=== PATIENT | female | born 1970 ===

== ENCOUNTER 2023-10-23 06:30 | Day surgery (SDC) | payer BC, SELFPAY ==
[2023-10-05 09:31] VITALS: BMI 33.8
[2023-10-05 10:31] LABS: Hematocrit 43.8 % (37.0-47.0); Hemoglobin 14.8 g/dL (12.0-16.0); Mean Corp Hgb Conc. 33.8 g/dL (33.0-37.0); Mean Corpuscular Hgb 29.3 pg (27.0-31.0); Mean Corpuscular Volume 86.7 fL (81.0-99.0); Mean Platelet Volume 10.5 fL (7.4-10.4); Platelet Count 311 10^3/uL (130-400); Red Blood Cell Count 5.05 10^6/uL (4.20-5.40); Red Cell Dist. Width 12.7 % (11.5-14.5); White Blood Cell Count 6.2 10^3/uL (4.8-10.8)
[2023-10-05 10:45] LABS: INR 0.98; PT 12.8 Sec (11.4-14.6)
[2023-10-05 10:46] LABS: APTT 25.9 Sec (23.4-35.0)
[2023-10-05 10:58] LABS: ALT (SGPT) 15 U/L (0-35); AST (SGOT) 17 U/L (14-36); Albumin 4.5 g/dl (3.5-5.0); Alkaline Phosphatase 66 U/L (38-126); Blood Urea Nitrogen 19 mg/dl (7-17); Calcium 10.4 mg/dl (8.4-10.2); Carbon Dioxide 27 mmol/L (22-30); Chloride 103 mmol/L (98-107); Estimated Creatinine Clearance 103 ml/min; Glucose 190 mg/dl (70-99); Potassium 4.3 mmol/L (3.5-5.1); Sodium 143 mmol/L (135-145); Total Bilirubin 0.6 mg/dl (0.2-1.3); Total Protein 7.5 g/dl (6.3-8.2); eGFR > 60.00
[2023-10-23] VITALS (14 sets, daily range): BP systolic 134–177; BP diastolic 79–114; BMI 33.8
[2023-10-23] MEDS: NORMOSOL-R/PLASMALYTE-A 1000 IV (08:57)
[2023-10-23] MEDS: NEURONTIN 300 MG PO (08:58)
[2023-10-23] MEDS: TYLENOL 1000 MG PO (08:58)
[2023-10-23] MEDS: HEPARIN 5000 UNITS SC (08:58)
[2023-10-23 08:59] LABS: Glucose - Point of Care 210 mg/dl (70-99)
[2023-10-23] MEDS: NOVOLOG vial 2 UNITS SC (09:41)
--- NOTE | 2023-10-23 11:08 | OR.RPT ---
Operative Report
Operative Report
DATE OF OPERATION: October 23, 2023
PREOPERATIVE DIAGNOSIS: Right Thyroid Nodule - E041
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
SURGEON: Jag Strong M.D.
OPERATION: Resection of right substernal goiter
ANESTHESIA: GET
ESTIMATED BLOOD LOSS: 3 cc
DRAINS: None
SPECIMEN: right total thyroid lobe and isthmus
FINDINGS: right substernal thyroid lobe
COMPLICATIONS:� None
PROCEDURE:
The patient was taken to the operating room and placed in the usual supine position. After adequate general endotracheal anesthesia was established, the patient�s neck was extended, prepped, and draped in the typical sterile fashion. A 5 cm
transcervical incision was made two fingerbreadths above the sternal notch. The skin incision was made with the #15 blade, which was taken through the skin into the subcutaneous tissue. The underlying platysma muscle was divided, and subplatysmal
flaps were created superiorly to the thyroid cartilage and inferiorly to the sternal notch. Strap muscles were identified and at the midline.
Attention was turned to the patient�s right thyroid lobe. The right thyroid lobe was mobilized medially. During this process, the right middle thyroid vein and inferior thyroid artery were dissected and ligated with Ligasure. There was a substernal
extension, which was delivered out of the mediastinum through the cervical incision. Next, the right superior pole was taken down by dissecting and transecting the superior pole vessels with a Ligasure. The right thyroid lobe was mobilized medially.
During this process, the right recurrent laryngeal nerve was identified and preserved throughout its entire course. The right superior parathyroid gland was identified and preserved. The right thyroid lobe with isthmus was resected off the trachea
and sent to the pathology department.
After obtaining adequate hemostasis, the strap muscle was approximated with #3-0 Vicryl in a running fashion, and platysma muscles were reapproximated with #3-0 Vicryl in an interrupted fashion, and the skin was approximated with #4-0 Monocryl in a
running subcuticular fashion. Steri-strips and sterile dressings were placed. The patient tolerated the procedure well. The final instrument, needle, and sponge counts were correct.
[2023-10-23 11:35] LABS: Glucose - Point of Care 179 mg/dl (70-99)
[2023-10-23] MEDS: DILAUDID 0.25 MG IV ×2 (12:02→12:16)
== END 2023-10-23 13:47 | disposition home or self-care (01) ==
LOC: SDS 06:30
PROVIDERS: ATTENDING PHYSICIAN Surgery; FAMILY PHYSICIAN Family Medicine
PROC: 0GBJ0ZX Excision of Thyroid Gland Isthmus, Open Approach, Diagnostic (ICD-10-PCS; 2023-10-23)
PROC: 0GBH0ZX Excision of Right Thyroid Gland Lobe, Open Approach, Diagnostic (ICD-10-PCS; 2023-10-23)
DX: E04.1 Nontoxic single thyroid nodule (principal)
CPT/HCPCS: 60220; 88307; 36415; 80053; 82962; 85027; 85610; 85730; 93005; C1776